=== PATIENT | female | born 1960 | race Caucasian/White ===

== ENCOUNTER 2018-12-09 07:06 | Outpatient (CLI) ==
[2015-04-08 16:49] VITALS: BMI 19.5
== END 2018-12-09 07:07 | disposition home or self-care (01) ==
LOC: LAB 07:06
PROVIDERS: ATTEND Internal Medicine
DX: E11.65 Type 2 diabetes mellitus with hyperglycemia (principal); I10 Essential (primary) hypertension
CPT/HCPCS: 36415; 80053; 80061; 81001; 82043; 83036; 83735; 84439; 84443

== ENCOUNTER 2019-06-19 12:58 | Outpatient (CLI) ==
[2015-04-08 16:49] VITALS: BMI 19.5
== END 2019-06-19 13:15 | disposition short-term general hospital (02) ==
LOC: AMBL 12:58
PROVIDERS: ATTEND Internal Medicine
DX: R26.81 Unsteadiness on feet (principal); R44.1 Visual hallucinations; R41.82 Altered mental status, unspecified; Z86.011 Personal history of benign neoplasm of the brain